=== PATIENT | female | born 2000 | race Caucasian/White ===

== ENCOUNTER 2024-04-08 16:56 | Emergency (ER) | payer OTHER | END 2024-04-08 17:40 | disposition home or self-care (01) | LOC: NAV ERS 16:56 | DX: M54.12 Radiculopathy, cervical region (principal); M54.14 Radiculopathy, thoracic region; F17.290 Nicotine dependence, other tobacco product, uncomplicated | CPT/HCPCS: 99283 ==

== ENCOUNTER 2024-05-07 17:54 | Emergency (ER) | payer OTHER | END 2024-05-07 20:08 | disposition home or self-care (01) | LOC: NAV ERS 17:54 | DX: S60.011A Contusion of right thumb without damage to nail, initial encounter (principal); F17.290 Nicotine dependence, other tobacco product, uncomplicated; W22.8XXA Striking against or struck by other objects, initial encounter | CPT/HCPCS: 99283 ==